=== PATIENT | female | born 1980 | race Caucasian/White ===

== ENCOUNTER 2021-09-22 01:28 | Emergency (ER) | payer OTHER, MEDICAID ==
[~2021-09-22] VITALS: Ht 165.1 cm; Wt 70.3 kg
[2021-09-22] MEDS ORDERED: CEPH-548 PO (01:59)
[2021-09-22 02:55] VITALS: BP_SYST 139
== END 2021-09-22 03:09 | disposition home or self-care (01) ==
LOC: SED 01:28
DX: L03.115 Cellulitis of right lower limb (principal); F15.20 Other stimulant dependence, uncomplicated; F12.90 Cannabis use, unspecified, uncomplicated
CPT/HCPCS: 99281; 99283